=== PATIENT | male | born 1960 | race Caucasian/White ===

== ENCOUNTER → 2018-06-25 | Outpatient (REF) ==
--- NOTE | 2018-06-26 06:18 | REP ---
Clinical: Left shoulder pain . Technique: Internal rotation, external rotation, and Y view. Findings: No acute fracture or dislocation. Subtle cortical irregularity and spurring at the acromioclavicular joint is appreciated along with mild blunting to the ossified glenoid rim. The subacromial space is normal. No significant periarticular calcifications are identified. Impression: Mild arthritic changes primarily involving the acromioclavicular joint and glenoid rim. Electronically Signed by Eliel Barahona MD 06/26/2018 06:10 A
== END ==
LOC: M SMT 14:08
PROVIDERS: ATTEND Internal Medicine
DX: Z00.00 Encounter for general adult medical examination without abnormal findings (principal)